=== PATIENT | female | born 1985 | race Caucasian/White ===

== ENCOUNTER 2023-11-09 14:44 | Outpatient (CLI) | payer OTHER ==
--- NOTE | 2023-11-09 16:06 | XRAY Report ---
PROCEDURE: Ankle 3+V LT INDICATIONS: SPRAIN OF TIBIOFIBULAR LIGAMENT TECHNIQUE: 3 views of the ankle were acquired. COMPARISON: None. FINDINGS: Bones: Oblique fracture through the distal fibula and the lateral malleolus extending to the tibiofi bular joint. No significant displacement. Diffuse soft tissue swelling overlying the fracture site. Ankle mortise is normally aligned. No suspicious bony lesions. Soft tissues: Small tibiotalar joint effusion. Achilles tendon appears normal. IMPRESSION: Nondisplaced distal fibular fracture Reviewed by: Jairon Esquivel MD on 11/09/2023 3:05 PM JUNI Approved by: Jairon Esquivel MD on 11/09/2023 3:05 PM JUNI Station ID: [id number]
--- NOTE | 2023-11-10 06:48 | XRAY Report ---
PROCEDURE: Knee 3V LT INDICATIONS: OTHER FRACTURE OF LEFT LOWER LEG TECHNIQUE: 3 views of the knee(s) were acquired. COMPARISON: None. FINDINGS: Bones: No fractures or dislocations. No suspicious bony lesions. Soft tissues: No knee joint effusion. No suspicious soft tissue calcifications or masses. IMPRESSION: No acute bony abnormality. If there remains a high clinical concern for fracture, consider cross-sect ional imaging now. If pain persists, consider repeat x-ray in 10-14 days or cross-sectional imaging. Reviewed by: Lynn Manuel MD on 11/10/2023 6:47 AM PDT Approved by: Lynn Manuel MD on 11/10/2023 6:47 AM PDT Station ID: [id number]
== END 2023-11-09 14:45 | disposition home or self-care (01) ==
LOC: DI 14:44
PROVIDERS: ATTEND Emergency Medicine
DX: S82.65XA Nondisplaced fracture of lateral malleolus of left fibula, initial encounter for closed fracture (principal)

== ENCOUNTER 2023-12-20 10:07 | Outpatient (CLI) | payer OTHER ==
[2023-12-20 11:53] LABS: BASOPHILS # (AUTO) 0.1 10^3/uL (0.0-0.1); BASOPHILS % (AUTO) 0.7 %; EOSINOPHILS # (AUTO) 0.1 10^3/uL (0.0-0.7); HCT - HEMATOCRIT 35.1 % (37.0-47.0); HGB - HEMOGLOBIN 10.9 g/dL (12.0-16.0); LYMPHOCYTES # (AUTO) 3.5 10^3/uL (1.5-3.5); LYMPHOCYTES % (AUTO) 40.4 %; MEAN CORPUSCULAR HEMOGLOBIN 27.8 pg (27.0-31.0); MEAN CORPUSCULAR HGB CONC 31.1 g/dL (32.0-36.0); MEAN CORPUSCULAR VOLUME 89.5 fL (81.0-99.0); MEAN PLATELET VOLUME 9.8 fL (7.9-10.8); MONOCYTES # (AUTO) 0.8 10^3/uL (0.0-1.0); MONOCYTES % (AUTO) 8.7 %; NEUTROPHILS # (AUTO) 4.3 10^3/uL (1.5-6.6); NEUTROPHILS % (AUTO) 48.9 %; PLT - PLATELET COUNT 294 10^3/uL (130-450); RED BLOOD COUNT 3.92 10^6/uL (4.20-5.40); WHITE BLOOD COUNT 8.8 x10^3/uL (4.8-10.8)
[2023-12-20 12:14] LABS: ALBUMIN 4.7 g/dL (3.2-5.5); ALBUMIN/GLOBULIN RATIO 1.7 (1.0-2.2); ALKALINE PHOSPHATASE 51 IU/L (42-121); ALT ALANINE AMINOTRANSFERASE 16 IU/L (10-60); AST ASPARTATE AMINOTRANSFERASE 16 IU/L (10-42); BILIRUBIN,TOTAL 0.3 mg/dL (0.2-1.0); BUN - BLOOD UREA NITROGEN 23 mg/dL (6-20); CALCIUM 10.4 mg/dL (8.5-10.3); CARBON DIOXIDE - CO2 27 mmol/L (21-32); CHLORIDE 106 mmol/L (101-111); CHOLESTEROL 173 mg/dL; CREATININE 0.8 mg/dL (0.6-1.3); GFR - MDRD 79 (>89); GLUCOSE 92 mg/dL (74-104); HDL CHOLESTEROL 57 mg/dL; LDL CHOLESTEROL,CALCULATED 98 mg/dL; LDL/HDL RATIO 1.7 (<4.4); POTASSIUM 4.1 mmol/L (3.5-4.5); SODIUM 139 mmol/L (135-145); TOTAL PROTEIN 7.4 g/dL (6.4-8.9); TRIGLYCERIDES 89 mg/dL (48-352); VLDL CHOLESTEROL 18 mg/dL
[2023-12-20 12:16] LABS: ESTIMATED AVERAGE GLUCOSE 103 mg/dL (70-100); HEMOGLOBIN A1c% 5.2 % (4.27-6.07)
[2023-12-20 14:09] LABS: THYROID STIMULATING HORMONE 1.22 uIU/mL (0.34-5.60)
== END 2023-12-20 10:08 | disposition home or self-care (01) ==
LOC: LAB.N 10:07
PROVIDERS: ATTEND Physician Assistant
DX: I10 Essential (primary) hypertension (principal); E78.5 Hyperlipidemia, unspecified; Z86.39 Personal history of other endocrine, nutritional and metabolic disease; Z83.3 Family history of diabetes mellitus; Z13.29 Encounter for screening for other suspected endocrine disorder
CPT/HCPCS: 36415; 80053; 80061; 82306; 83036; 83721; 84443; 85025

== ENCOUNTER 2024-01-14 09:48 | Outpatient (CLI) | payer OTHER ==
--- NOTE | 2024-01-14 15:05 | XRAY Report ---
PROCEDURE: Ankle 3+V LT INDICATIONS: LEFT ANKLE PAIN TECHNIQUE: 3 views of the ankle were acquired. COMPARISON: X-ray ankle 11/09/2023 FINDINGS: Bones: Stable alignment of minimally displaced distal fibular fracture. Fracture lucency is slightly less visible. Soft tissues: No tibiotalar joint effusion. Achilles tendon appears normal. IMPRESSION: Interval healing with stable alignment of distal fibular fracture. Reviewed by: Chante Duval MD on 01/14/2024 3:03 PM PDT Approved by: Chante Duval MD on 01/14/2024 3:03 PM PDT Station ID: [id number]
== END 2024-01-14 09:49 | disposition home or self-care (01) ==
LOC: DI 09:48
PROVIDERS: ATTEND Physician Assistant Surgical
DX: S82.832D Other fracture of upper and lower end of left fibula, subsequent encounter for closed fracture with routine healing (principal)

== ENCOUNTER 2024-01-14 10:08 | Outpatient (CLI) | payer OTHER ==
[2024-01-14 10:24] LABS: ABSOLUTE RETICS # AUTO 0.052 10^6/uL (0.020-0.110); BASOPHILS # (AUTO) 0.1 10^3/uL (0.0-0.1); BASOPHILS % (AUTO) 0.5 %; EOSINOPHILS # (AUTO) 0.1 10^3/uL (0.0-0.7); HCT - HEMATOCRIT 35.1 % (37.0-47.0); LYMPHOCYTES # (AUTO) 3.2 10^3/uL (1.5-3.5); LYMPHOCYTES % (AUTO) 33.1 %; MEAN CORPUSCULAR HEMOGLOBIN 27.9 pg (27.0-31.0); MEAN CORPUSCULAR HGB CONC 31.3 g/dL (32.0-36.0); MEAN CORPUSCULAR VOLUME 89.1 fL (81.0-99.0); MONOCYTES # (AUTO) 0.7 10^3/uL (0.0-1.0); MONOCYTES % (AUTO) 7.3 %; NEUTROPHILS # (AUTO) 5.6 10^3/uL (1.5-6.6); NEUTROPHILS % (AUTO) 57.9 %; PLT - PLATELET COUNT 239 10^3/uL (130-450); RED BLOOD COUNT 3.94 10^6/uL (4.20-5.40); RETICULOCYTE COUNT % (AUTO) 1.33 % (0.5-2.3); WHITE BLOOD COUNT 9.6 x10^3/uL (4.8-10.8)
[2024-01-14 11:01] LABS: FERRITIN 10.8 ng/mL (11.0-306.8)
== END 2024-01-14 10:09 | disposition home or self-care (01) ==
LOC: LAB 10:08
PROVIDERS: ATTEND Physician Assistant
DX: D64.9 Anemia, unspecified (principal)
CPT/HCPCS: 36415; 82607; 82728; 82746; 83540; 84466; 85025; 85045

== ENCOUNTER 2024-02-27 13:32 | Outpatient (CLI) | payer OTHER ==
--- NOTE | 2024-03-02 20:44 | XRAY Report ---
PROCEDURE: Ankle 3+V LT INDICATIONS: DISPLACED FRACTURE OF LATERAL MALLEOULUS OF LEFT FIBULA TECHNIQUE: 3 views of the ankle were acquired. COMPARISON: 01/14/2024 FINDINGS: Bones: Unchanged transverse fracture of the lateral malleolus with stable alignment of fracture frag ments. Mild degree of interval callus formation. The ankle mortise is intact. No additional fractures . Soft tissues: No tibiotalar joint effusion. Achilles tendon appears normal. IMPRESSION: Unchanged transverse fracture of lateral malleolus with stable alignment of fracture fragments and mi ld degree of interval callus formation. Reviewed by: Leandro Sanchez MD on 02/27/2024 4:44 PM PDT Approved by: Leandro Sanchez MD on 02/27/2024 4:44 PM PDT Station ID: [id number]
== END 2024-02-27 13:33 | disposition home or self-care (01) ==
LOC: DI.N 13:32
PROVIDERS: ATTEND Physician Assistant Surgical
DX: S82.62XD Displaced fracture of lateral malleolus of left fibula, subsequent encounter for closed fracture with routine healing (principal)

== ENCOUNTER 2024-03-09 06:35 | Emergency (ER) | payer OTHER ==
--- NOTE | 2024-03-09 06:47 | ED Physician Documentation ---
History of Present Illness - Stated complaint Stated Complaint: DOG BITE,RT FINGER INJ - Chief complaint Chief Complaint: Laceration - History obtained from History obtained from: Patient - Additonal information Additional information: The patient comes to the emergency department chief complaint of dog bite to right ring finger tip. She states she was trying to break up her 2 corgies were fighting when 1 accidentally bit her. She was not injured in any other way. Her last tetanus shot was in 2019. The patient states her fingertip hurts that otherwise, she denies any other complaints at this time. PD PAST MEDICAL HISTORY - Present Medications Home Medications: Ambulatory Orders Medication Instructions Recorded Confirmed Amox/Clav 875/125 [Augmentin] 1 each PO Q12H #14 tablet 03/09/24 - Allergies Allergies/Adverse Reactions: Allergies Allergy/AdvReac Type Severity Reaction Status Date / Time almotriptan [From Axert] Allergy Headache Verified 03/09/24 06:47 doxycycline Allergy Headache Verified 03/09/24 06:47 PD ED PE NORMAL - Vitals Vital signs reviewed: Yes - General General: Alert and oriented X 3, No acute distress, Well developed/nourished - HEENT HEENT: Atraumatic, EOMI, Moist mucous membranes - Neck Neck: Supple, no meningeal sign - Cardiac Cardiac: Strong equal pulses - Respiratory Respiratory: No respiratory distress - Derm Derm: Normal color, Warm and dry, No rash, Other (1 cm laceration to the pad of right ring finger Flexor aspect. Corresponding tiny contusion subungually on the same finger. Some adipose tissue exposed. No active bleeding, other than oozing.) - Extremities Extremities: No deformity - Neuro Neuro: No motor deficit, No sensory deficit - Psych Psych: Normal mood, Normal affect Results - Vitals Vitals: Vital Signs - 24 hr 03/09/24 06:39 Temperature 36.5 C Heart Rate 79 Respiratory 20 Rate Blood Pressure 148/103 H O2 Saturation 97 Oxygen O2 Source Room air Procedures - Laceration (location) Right ring finger Length in cm: 1 Wound type: Irregular, Into subcut fat, Clean Neurovascular status: Sensory intact, Motor intact, Vascular intact Tendon involvement: Tendon intact Anesthesia: Lidocaine 1% Wound preparation: Hibiclens, Irrigated copiously NS, Wound explored, To the base, debridement of wound edges (traumatic laceration/avulsion) Skin layer closure: Nylon, Interrupted, Size #-0 - enter number (5.0), Sutures - enter # (3) Other: Patient tolerated well, No complications, Neurovascular intact, Dressing applied, Tetanus UTD PD Medical Decision Making - ED course Complexity details: considered differential, d/w patient ED course: Due to the bite being on the finger, the patient was given a dose of Augmentin along with the suture repair. She is up-to-date on tetanus. I have sent a prescription for her Augmentin to the pharmacy of her choice. She has been given instructions regarding wound care. We have discussed the usual indicat ions for return and the timeline for suture removal. Departure - Departure Disposition: Home, Self Care Clinical Impression: Laceration Dog bite Qualifiers: Encounter type: initial encounter Qualified Code(s): W54.0XXA - Bitten by dog, initial encounter Condition: Stable Instructions: ED Laceration Hand, ED Bite Dog Prescriptions: Amox/Clav 875/125 [Augmentin] 1 each PO Q12H #14 tablet Comments: Your wound has been washed thoroughly and repaired with 3 synthetic sutures. They should be left in place for the next 7 days and then can be removed. 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 As we have discussed, you may take ibuprofen and Tylenol if needed for any discomfort. You may also use ice packs. We have started you on a dose of antibiotics since this bite is on your finger. A prescription for the remainder has been electronically transmitted to the [facility] pharmacy in [place]. You should generally keep the wound dry, though you may allow water and soap to run over the wound. Please do not rub, scrub, or immerse the wound as long as the sutures are in. This is to prevent a theoretical risk of infection. If you begin to notice redness or swelling spreading progressively away from the wound, you should get it rechecked as this may represent infection. Otherwise, please plan for the sutures to be removed in 7 days. Forms: PCP List
[2024-03-09 06:51] VITALS: BP 148/103; O2SAT 97
[2024-03-09] MEDS: AMOX/CLAV 875 MG/125 MG TABLET PO STA (06:52)
[2024-03-09] MEDS: lidocaine 1% 20 ML MDV SUBQ ONE (06:52)
== END 2024-03-09 07:18 | disposition home or self-care (01) ==
LOC: ED 06:35
DX: S61.234A Puncture wound without foreign body of right ring finger without damage to nail, initial encounter (principal); W54.0XXA Bitten by dog, initial encounter
CPT/HCPCS: 12001; 99283; A9270